=== PATIENT | male | born 1970 | race Caucasian/White ===

== ENCOUNTER 2024-11-17 07:05 | Emergency (ER) | payer BC, SELFPAY ==
[2024-11-17 07:17] VITALS: BP 120/79
--- NOTE | 2024-11-17 08:14 | ED.GENMED ---
History of Present Illness
General
Chief Complaint: Abdominal Pain
Time Seen by Provider: 11/17/24 07:56
History of Present Illness
History of Present Illness:
Patient is a 54-year-old male with a history of laparotomy after traumatic injury and nephrectomy who presents with diffuse abdominal pain and obstipation. Last bowel movement was on Monday. Endorses worsening diffuse abdominal pain since then.
Endorses increased belching and flatulence. Denies vomiting.
Past History
Past History
ED Past Medical History: Other (ADD, chemical induced asthma)
ED Past Surgical History: Other (Right nephrectomy and spleen repair due to trauma)
Social History
Tobacco: Non-smoker
Alcohol: None
Personal:
Living: with family
Employment: Employed
Phy Exam
Physical Exam
Physical Exam:
GENERAL APPEARANCE: Patient is uncomfortable appearing moving gingerly in the stretcher
EYES lids/conjunctiva normal
EARS/NOSE/THROAT Mucous membranes moist, uvula midline without oral pharyngeal erythema, exudate or swelling
HEAD/NECK normocephalic atraumatic, neck is supple.
RESPIRATORY respiratory effort normal, speaks in full sentences, no accessory muscle use. Lungs clear to auscultation without rhonchi, wheezes, rales
CARDIAC Regular rate and rhythm, no edema.
ABDOMINAL midline surgical scar noted. There is no hernia. Diffuse abdominal tenderness. No distention. Soft without rebound or guarding
MUSCLES/EXTREMITIES No abnormal range of motion, no swelling.
SKIN Warm, pink and dry. No rashes
NEUROLOGICAL Speech is clear and appropriate. Normal level of consciousness. 5/5 strength in all extremities.
PSYCH Normal mood and affect. Judgement/competence is appropriate
Course
Orders/Labs/Results
Orders:
Orders
11/17/24 08:13
CT Abd/pelvis W Iv Cont Urgent
Comment:
Reason For Exam: diffuse abd pain, obstipation
11/17/24 08:14
0.9% Sodium Chloride 1000 ml [Nss] 1,000 ml IV BOLUS
Morphine Sulfate 4 mg IV NOW STA
Ondansetron Injectable [Zofran] 4 mg IV NOW STA
11/17/24 08:45
Complete Blood Count/With Diff Urgent
Comprehensive Metabolic Panel Urgent
Lipase Urgent
11/17/24 08:53
Urinalysis Reflex To Culture Urgent
Date Specimen was Collected: 11/17/24
Time Specimen was Collected: 08:53
Urine Microscopic Reflex Cult Urgent
Abnormal Lab Results
11/17/24 11/17/24
08:45 08:53
Absolute Monos (auto) 0.7 H 10^3/uL
(0.1-0.6)
Monocytes % 10.8 H %
(1.7-9.3)
Chloride 109 H mmol/L
(98-107)
BUN 31 H mg/dl
(9-20)
Glucose 108 H mg/dl
(70-99)
Lipase 357 H U/L
(23-300)
Urine RBC 3-6 A /HPF
(0-2)
Urine Albumin (Reflex) 1+ A
(Neg - Trace)
11/17/24 08:45
11/17/24 08:45
Vital Signs
Initial and Last Documented VS:
Initial Vital Signs
Temp Pulse Resp BP Pulse Ox
98.3 F 70 18 120/79 96
11/17/24 07:17 11/17/24 07:17 11/17/24 07:17 11/17/24 07:17 11/17/24 07:17
Last Documented Vital Signs
Temp Pulse Resp BP Pulse Ox
98.3 F 74 20 108/67 97
11/17/24 07:17 11/17/24 12:15 11/17/24 12:15 11/17/24 12:15 11/17/24 12:15
*Critical Care Note
Total Time (30-74mins, 75-104mins- exclusive of procedures): Not Applicable
ED Attending Note
ED Attending Note
ED Attending Note:
Patient presents with lower abdominal pain found to have acute diverticulitis without any complicating factors. Pain is well-controlled at this time and he is requesting discharge. I instructed him on clear liquid diet, antibiotics, pain control
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
-
Portions of this chart may have been created with voice recognition software.� Occasional wrong word or��sound alike� substitutions may have occurred due to the inherent limitations of voice recognition software.
Discharge Plan
Departure
Patient Disposition: Home (Routine Discharge)
Date of Disposition: 11/17/24
Time of Disposition: 11:24
Patient with high blood pressure during this ER visit?: No
Discharge Problem:
Diverticulitis
Prescriptions:
New
amoxicillin-pot clavulanate 875-125 mg tablet
1 tab PO Q8H Qty: 21 0RF
oxycodone 5 mg capsule
5 mg PO BID PRN (Reason: Pain) Qty: 9 0RF
No Action
methylphenidate [Daytrana] 30 mg/9 hr Patch 24 Hour
1 patch TRANSDERMAL DAILY
Patient Comments:
06/01/22: Per PDMP, last filled 05/28/22 #30 for 30 days; pt states he is unable to tolerate the generic methylphenidate patch
acetaminophen [Pain Reliever ES(acetaminophn)] 500 mg Tablet
1,000 mg PO Q6HPRN PRN (Reason: pain, fever) Qty: 0 0RF
amoxicillin-pot clavulanate 500-125 mg tablet
1 tab PO Q12H Qty: 3 0RF
Rx Instructions:
take through 06/07
Referrals:
Paty Odom DO [Active] -
Arlet Ng MD [Family Provider] -
Activity Restrictions/Additional Instructions:
follow up with the GI doctor after antibiotics
return to ER with worsening symptoms
Interventions
Interventions:
*Risk Screen - Suicide Last Done: 11/17/24 07:17
*General Assessment Last Done: 11/17/24 07:17
*Neglect/Abuse Screening Last Done: 11/17/24 07:17
*ED- Fall Risk Assessment Last Done: 11/17/24 08:51
*ED COVID-19 Vaccine History Last Done: 11/17/24 08:51
*Nursing Disposition Last Done: 11/17/24 12:15
LG-Zknjqa-[id number] Assessment Last Done: 11/17/24 10:54
Discharge Date and Time
Discharge Date/Time: 11/17/24 12:30
Print Language: UZBEK
[2024-11-17] MEDS: ZOFRAN 4 MG IV (08:47)
[2024-11-17] MEDS: NSS 1000 IV (08:47)
[2024-11-17] MEDS: MORPHINE SULFATE 4 MG IV (08:48)
[2024-11-17 08:50] VITALS: BMI 28.7
[2024-11-17 09:02] LABS: % Basophils 0.8 % (0-2); % Eosinophils 1.6 % (0-6); % Immature Granulocytes 0.3 % (0-0.5); % Lymphocytes 22.7 % (20.5-51.1); % Monocytes 10.8 % (1.7-9.3); % Neutrophils 63.8 % (42.2-75.2); Absolute Basophils 0.1 10^3/uL (0-0.2); Absolute Eosinophils 0.1 10^3/uL (0-0.7); Absolute Lymphocytes 1.5 10^3/uL (1.2-3.4); Absolute Monocytes 0.7 10^3/uL (0.1-0.6); Absolute Neutrophils 4.1 10^3/uL (1.4-6.5); Hematocrit 43.4 % (39.0-52.0); Hemoglobin 15.3 g/dL (13.0-18.0); Mean Corp Hgb Conc. 35.3 g/dL (33.0-37.0); Mean Corpuscular Hgb 30.4 pg (27.0-31.0); Mean Corpuscular Volume 86.1 fL (80.0-94.0); Mean Platelet Volume 9.5 fL (7.4-10.4); Nucleated Red Blood Cells % 0 % (-); Platelet Count 171 10^3/uL (130-400); Red Blood Cell Count 5.04 10^6/uL (4.70-6.10); Red Cell Dist. Width 12.1 % (11.5-14.5); White Blood Cell Count 6.4 10^3/uL (4.8-10.8)
[2024-11-17 09:04] LABS: Urine Albumin 1+ (Neg - Trace); Urine Bilirubin Negative (Negative); Urine Character Clear (Clear); Urine Color Yellow; Urine Glucose Negative (Negative); Urine Ketone Negative (Negative); Urine Leukocyte Negative (Negative); Urine Nitrite Negative (Negative); Urine Occult Blood Negative (Negative); Urine Urobilinogen Negative (Neg - 1+)
[2024-11-17 09:15] LABS: ALT (SGPT) 36 U/L (0-50); AST (SGOT) 32 U/L (17-59); Albumin 4.1 g/dl (3.5-5.0); Alkaline Phosphatase 57 U/L (38-126); Blood Urea Nitrogen 31 mg/dl (9-20); Calcium 9.4 mg/dl (8.4-10.2); Carbon Dioxide 24 mmol/L (22-30); Chloride 109 mmol/L (98-107); Estimated Creatinine Clearance 71 ml/min; Glucose 108 mg/dl (70-99); Lipase 357 U/L (23-300); Potassium 4.5 mmol/L (3.5-5.1); Sodium 141 mmol/L (135-145); Total Bilirubin 0.6 mg/dl (0.2-1.3); Total Protein 6.9 g/dl (6.3-8.2); eGFR > 60.00
[2024-11-17 12:15] VITALS: BP 108/67
== END 2024-11-17 12:30 | disposition home or self-care (01) ==
LOC: EMR 07:05
PROVIDERS: EMERGENCY PHYSICIAN Emergency Medicine; FAMILY PHYSICIAN Internal Medicine
DX: K57.32 Diverticulitis of large intestine without perforation or abscess without bleeding (principal); Z90.5 Acquired absence of kidney; Z87.828 Personal history of other (healed) physical injury and trauma
CPT/HCPCS: 96374; 96375; 96361; 99284; 74177; 80053; 81003; 81015; 83690; 85025; Q9967